=== PATIENT | female | born 1940 | race Native Hawaiian/Other Pacific Islander ===

== ENCOUNTER 2017-01-19 07:56 | Observation (INO) | payer MEDICARE ==
[2017-01-17 10:32] VITALS: BMI 14.1
[2017-01-19] MEDS ORDERED: Bupivacaine 0.5% Inj(30mL) ONE (11:14)
[2017-01-19] MEDS ORDERED: Rocuronium 10 mg/ml (5 ml) ONE (11:41)
[2017-01-19] MEDS ORDERED: Propofol 10 mg/ml Inj (20 ML) ONE (11:41)
[2017-01-19] MEDS ORDERED: ePHEDrine 50 mg/ml Inj ONE (11:42)
[2017-01-19] MEDS ORDERED: Phenylephrine 10 mg/ml Inj ONE (11:42)
[2017-01-19] MEDS ORDERED: Lidocaine 2% MPF (5 ml) Inj ONE (11:42)
[2017-01-19] MEDS ORDERED: Etomidate 20 mg/10ml Inj IV ONE (12:05)
[2017-01-19] MEDS ORDERED: Lactated Ringer's 1,000 ML IV ONE ×2 (12:15→15:00)
[2017-01-19] MEDS ORDERED: Dexamethasone 4 mg/1 ml ONE (12:38)
[2017-01-19] MEDS ORDERED: Bupivacaine 0.5% 50 ML IJ ONE (12:40)
[2017-01-19] MEDS ORDERED: Desflurane Inhalation Anesthetic Liq (240 ml) ONE (12:44)
[2017-01-19] MEDS ORDERED: Neostigmine Methylsulfate 2 MG/2 ML ML IV ONE (12:46)
[2017-01-19] MEDS ORDERED: Neostigmine Methylsulfate 3mg/3ml Syringe IV ONE (12:46)
[2017-01-19] MEDS ORDERED: HYDROmorphone 0.5 mg/0.5 ml ISec IVP PRN (13:21)
--- NOTE | 2017-01-19 13:21 | PCM.SURG1 ---
Surgeon's Initial Post Op Note - Surgeon's Notes Surgeon: Dr. Lenz Refractive Surgeon: Dr. Villarreal, Dr. Soto PGY2; Dr. Potter Type of Anesthesia: General Endo Anesthesia Administered By: Peggy Pre-Operative Diagnosis: Chronic Cholecystitis Operative Findings: same Post-Operative Diagnosis: same Operation Performed: Laparoscopic Cholecystectomy Specimen/Specimens Removed: Gallbladder Estimated Blood Loss: EBL {In ML}: 5 Blood Products Given: N/A Drains Used: No Drains Post-Op Condition: Good Date of Surgery/Procedure: 01/19/17 Time of Surgery/Procedure: 13:21
--- NOTE | 2017-01-19 13:24 | CP.SDSHP ---
Same Day Surgery H & P - History Proposed Procedure: Laparoscopic Cholecystectomy Pre-Op Diagnosis: Chronic Cholecystitis - Allergies Allergies: Allergies No Known Allergies Allergy (Verified 11/10/16 20:42) - Physical Exam Vital Signs: Vital Signs 01/19/17 01/19/17 08:30 08:37 Temperature 97.7 F Pulse Rate 95 H 95 H Respiratory 18 Rate Blood Pressure 139/70 O2 Sat by Pulse 96 Oximetry Short Stay Discharge - Short Stay Discharge Admitting Diagnosis/Reason for Visit: K80.12 Disposition: HOME/ ROUTINE Follow-up: Followup in office in 1 week. Additional Instructions (Diet, Activity): You may shower, no baths. Resume regular diet and light activities. Avoid any heavy lifting >10lbs for 4weeks. Make an appt. to see Dr. Lenz in office in 1 week. Take tylenol #3 for pain as prescribed.
[2017-01-19] MEDS ORDERED: Lactated Ringer's 1,000 ML IV SCH (13:30)
[2017-01-19] MEDS ORDERED: Naloxone 0.4 mg/ml Inj (Adult) ONE (13:35)
--- NOTE | 2017-01-19 13:39 | OP ---
PROCEDURE DATE: 01/19/2017 PREOPERATIVE DIAGNOSES: Cholecystitis, cholelithiasis, history of pancreatitis and pseudocysts. POSTOPERATIVE DIAGNOSES: Cholecystitis, cholelithiasis, history of pancreatitis and pseudocysts. PROCEDURE: Laparoscopy, laparoscopic cholecystectomy. SURGEON: Jesús Lenz MD ASSISTANTS: Dr. Villarreal, Dr. Soto and . ANESTHESIA: General endotracheal, DrCortney . OPERATIVE FINDINGS: Chronic cholecystitis. PREPARATION AND PROCEDURE: The patient was brought to the Operating Room and after successful induct ion of general endotracheal anesthesia was obtained, the abdomen was prepped and draped in the usual manner. A Veress needle was inserted in the periumbilical region and making sure that it was in the i ntra-abdominal cavity adequate pneumoperitoneum was obtained. The needle was removed. A periumbilic al incision was made and a 10 mm trocar was inserted. A full laparoscopy did not reveal any gross in tra-abdominal pathology. So at this point under direct visualization, another 10 mm trocar was inser enzo just right of the midline in the epigastric region and two 5 mm trocars were inserted in the righ t upper quadrant. At this point dissection was carried out of the triangle of Calot. The cystic kelsy t was visualized and dissected down to the confluence of the common bile duct. The cystic duct was t riply clipped and divided and continuing dissection at the triangle of Calot, the cystic artery was v isualized, triply clipped and divided. The gallbladder was then dissected from the gallbladder fossa using hemocautery and obtaining hemostasis the same way. Just before removing the whole gallbladder from its fossa, the area was copiously irrigated, hemostasis was obtained and then the gallbladder w as totally removed from its fossa. The gallbladder was removed from the peritoneal cavity via the um bilical incision and once this was done, the trocar was reinserted and the right upper quadrant was c opiously irrigated and suctioned. Once this was done and making sure that hemostasis was excellent, all trocars were removed under direct visualization and the umbilical and epigastric incisions were c losed with #10 Vicryl. The skin was approximated using fine nylon. All incisions were infiltrated w ith Marcaine. POSTOPERATIVE CONDITION: The patient tolerated the procedure very well and was transferred to the Re covery Room in good general status. Jesús Lenz MD cc: [id number] TT: 01/19/2017 13:38:33 [facility] # [id number] en
[2017-01-19] MEDS: Naloxone 0.4 mg/ml Inj (Adult) IVP ONE ×6 (13:40→14:17)
[2017-01-19] MEDS ORDERED: Labetalol 5mg/ml (4ml) ONE (13:49)
[2017-01-19] MEDS ORDERED: Labetalol 5mg/ml (4ml) IVP ONE (14:01)
--- NOTE | 2017-01-19 14:05 | CP.PCM.PN ---
Subjective - Date & Time of Evaluation Date of Evaluation: 01/19/17 Time of Evaluation: 14:03 - Subjective Subjective: Patient lethergic in PACU with shallow respirations. Narcan given 0.04 mg at a time for a total of 0.12 mg. Patient now responding and opening her eyes with deeper breaths. 26 F nasal trumpet inserted to help alleviate obstruction. Patients BP up to 186/94 in recovery so gave 5 mg Labetalol. Objective - Vital Signs/Intake and Output Vital Signs (last 24 hours): Temp Pulse Resp BP Pulse Ox 97.7 F 95 H 18 139/70 96 01/19/17 08:30 01/19/17 08:37 01/19/17 08:30 01/19/17 08:30 01/19/17 08:30 Intake and Output: 01/19/17 01/19/17 06:59 18:59 Intake Total 700 Balance 700 - Medications Medications: Current Medications Hydromorphone HCl (Dilaudid) 0.5 mg IVP Q10M PRN PRN Reason: Pain, moderate (4-7) Stop: 01/19/17 13:32 Lactated Ringer's (Lactated Ringer's) 1,000 mls @ 125 mls/hr IV .Q8H KAYLA Labetalol HCl (Trandate) 5 mg IVP ONCE ONE Stop: 01/19/17 14:02 Naloxone HCl (Narcan) 0.4 mg IVP ONCE ONE Stop: 01/19/17 14:00
[2017-01-19 15:10] LABS: ABG ALLEN TEST YES; ARTERIAL BLOOD GAS O2 CAPACITY 15.9 mL/dL (16-24); ARTERIAL BLOOD GAS O2 CONTENT 15.8 ML/dL (15-23); ARTERIAL BLOOD GAS PH 7.34 (7.35-7.45); ARTERIAL BLOOD GAS PO2 94 mm/Hg (80-100); ARTERIAL BLOOD HGB O2 SAT 96.1 % (95.0-98.0); CARBOXYHEMOGLOBIN 1.9 % (0.5-1.5); DRAW SITE rr; HHB 0.6 % (0.0-5.0); METHEMOGLOBIN 1.5 % (0.0-3.0)
--- NOTE | 2017-01-19 15:33 | CP.PCM.HP ---
History of Present Illness - History of Present Illness History of Present Illness: 76F seen and examined at bedside with attending. Pt denies any pain in either her abdomen or chest, denies nausea. PMH: Biliary Pancreatitis, HLD PSH:None Denies: smoke/alcohol/drugs Allergies: NKDA Medications: See Med Rec Present on Admission - Present on Admission Any Indicators Present on Admission: No Review of Systems - Review of Systems Review of Systems: As per HPI Past Patient History - Infectious Disease Hx of Infectious Diseases: None - Past Medical History & Family History Past Medical History?: Yes - Past Social History Smoking Status: Never Smoked - CARDIAC Hx Cardiac Disorders: Yes Hx Hypercholesterolemia: Yes - PULMONARY Hx Respiratory Disorders: No - NEUROLOGICAL Hx Neurological Disorder: No - HEENT Hx HEENT Problems: Yes Hx Cataracts: Yes Other/Comment: Use eyeglasses - RENAL Hx Chronic Kidney Disease: No - ENDOCRINE/METABOLIC Hx Endocrine Disorders: No - HEMATOLOGICAL/ONCOLOGICAL Hx Blood Disorders: No - INTEGUMENTARY Hx Dermatological Problems: No - MUSCULOSKELETAL/RHEUMATOLOGICAL Hx Musculoskeletal Disorders: Yes Hx Back Pain: Yes Hx Falls: Yes - GASTROINTESTINAL Hx Gastrointestinal Disorders: Yes Hx Gall Bladder Disease: Yes (gall stones) Hx Pancreatitis: Yes - GENITOURINARY/GYNECOLOGICAL Hx Genitourinary Disorders: No - PSYCHIATRIC Hx Psychophysiologic Disorder: No Hx Emotional Abuse: No Hx Physical Abuse: No Hx Substance Use: No - SURGICAL HISTORY Hx Surgeries: Yes Hx Cataract Extraction: Yes (about 3 - 4 yrs. ago) Hx Tonsillectomy: Yes - ANESTHESIA Hx Anesthesia: Yes Hx Anesthesia Reactions: No Hx Malignant Hyperthermia: No Has any member of the family had a problem w/ anesthesia?: No Meds Allergies/Adverse Reactions: Allergies Allergy/AdvReac Type Severity Reaction Status Date / Time No Known Allergies Allergy Verified 11/10/16 20:42 Physical Exam - Constitutional Appears: Well, No Acute Distress (Drowsy) - Head Exam Head Exam: ATRAUMATIC, NORMAL INSPECTION - Eye Exam Eye Exam: EOMI, Normal appearance - ENT Exam ENT Exam: Mucous Membranes Moist, Normal Exam - Respiratory Exam Respiratory Exam: Clear to Auscultation Bilateral, NORMAL BREATHING PATTERN. absent: Rales, Wheezes - Cardiovascular Exam Cardiovascular Exam: REGULAR RHYTHM. absent: JVD - GI/Abdominal Exam GI & Abdominal Exam: Hypoactive Bowel Sounds, Soft, Tenderness (appropriately ttp, 4 small incisions c/w lap CCY well-approximated) - Extremities Exam Extremities exam: Positive for: full ROM, normal capillary refill, pedal pulses present - Neurological Exam Additional comments: Arouseable c/w post-anesthetic - Skin Skin Exam: Dry, Normal Color, Warm Results - Vital Signs Recent Vital Signs: Last Vital Signs Temp 36.5 C 01/19/17 08:30 Pulse 95 H 01/19/17 08:37 Resp 18 01/19/17 08:30 BP 139/70 01/19/17 08:30 Pulse Ox 96 01/19/17 08:30 - Labs Labs: Laboratory Results - last 24 hr 01/19/17 14:55 Puncture Site rr pCO2 49 H pO2 94 HCO3 25.0 ABG pH 7.34 L ABG Total CO2 27.9 ABG O2 Saturation 99.4 H ABG O2 Content 15.8 ABG Base Excess 0.1 ABG Hemoglobin 11.6 L ABG Carboxyhemoglobin 1.9 H POC ABG HHb (Measured) 0.6 ABG Methemoglobin 1.5 ABG O2 Capacity 15.9 L Chip Test Yes A-a O2 Difference 201.0 Hgb O2 Saturation 96.1 FiO2 50.0 Blood Gas Comments 10l/m nc Assessment & Plan (1) Cholelithiasis Assessment and Plan: POD#0 s/p lap CCY, stable condition, admit to obs. - Mgmnt as per Gen Surg - Pain control - Diet, IVF - abx as indicated - Incentive spirometry Status: Acute (2) DVT prophylaxis Assessment and Plan: As per surgery team, would recommend - Heparin 5,000U, SC, Q12H Status: Acute (3) Hyperlipidemia Assessment and Plan: Controlled, c/w home medication. Status: Chronic
[2017-01-19] MEDS ORDERED: Acetaminophen-Codeine 300/30 mg Tab PO PRN (15:37)
--- NOTE | 2017-01-19 16:05 | RAD ---
HISTORY: S/P Lap Krista COMPARISON: No prior. FINDINGS: LUNGS: No active pulmonary disease. PLEURA: No significant pleural effusion identified, no pneumothorax apparent. CARDIOVASCULAR: Normal. OSSEOUS STRUCTURES: No significant abnormalities. VISUALIZED UPPER ABDOMEN: Normal. OTHER FINDINGS: None. IMPRESSION: No active disease.
[2017-01-20 04:45] VITALS: RESP 18
[2017-01-20 05:47] LABS: HEMATOCRIT 34.4 % (34.0-47.0); MEAN CELL VOLUME 93.1 fl (81.0-99.0); MEAN CORPUSCULAR HEMOGLOBIN 30.2 pg (27.0-31.0); MEAN CORPUSCULAR HGB CONC 32.5 g/dL (33.0-37.0); RED CELL DISTRIBUTION WIDTH 13.1 % (11.5-14.5); WHITE BLOOD COUNT 7.9 K/uL (4.8-10.8)
[2017-01-20 05:51] LABS: BLOOD UREA NITROGEN 14 mg/dl (7-17); CALCIUM 9.1 mg/dL (8.4-10.2); CARBON DIOXIDE 27 mmol/L (22-30); CHLORIDE 105 mmol/L (98-107); GFR AFRICAN-AMERICAN > 60; GLUCOSE,RANDOM 125 mg/dL (65-105); POTASSIUM 4.7 MMOL/L (3.6-5.0); SODIUM 142 mmol/l (132-148)
--- NOTE | 2017-01-20 06:13 | CP.PCM.PN ---
Subjective - Date & Time of Evaluation Date of Evaluation: 01/20/17 Time of Evaluation: 06:13 - Subjective Subjective: 76F Objective - Vital Signs/Intake and Output Vital Signs (last 24 hours): Temp Pulse Resp BP Pulse Ox 36.6 C 78 18 100/48 L 100 01/20/17 04:44 01/20/17 04:44 01/20/17 04:44 01/20/17 04:44 01/20/17 04:44 Intake and Output: 01/19/17 01/20/17 18:59 06:59 Intake Total 1100 Balance 1100 - Medications Medications: Current Medications Acetaminophen/Codeine Phosphate (Tylenol/Codeine 300 Mg/30 Mg) 1 tab PO Q6 PRN PRN Reason: Pain, moderate (4-7) Last Admin: 01/20/17 02:17 Dose: 1 tab Atorvastatin Calcium (Lipitor) 40 mg PO DAILY KAYLA Ergocalciferol (Drisdol 50,000 Intl Units Cap) 1 cap PO QD7 KAYLA Lactated Ringer's (Lactated Ringer's) 1,000 mls @ 125 mls/hr IV .Q8H KAYLA Last Admin: 01/20/17 02:14 Dose: 125 mls/hr Ondansetron HCl (Zofran Inj) 4 mg IVP Q4 PRN PRN Reason: Nausea/Vomiting - Labs Labs: 01/20/17 05:00 01/20/17 05:00 Assessment and Plan (1) Cholelithiasis Status: Acute (2) DVT prophylaxis Status: Acute (3) Hyperlipidemia Status: Chronic
[2017-01-20] MEDS ORDERED: Ergocalciferol 50,000 Intl Units Cap PO SCH (07:30)
[2017-01-20 08:52] VITALS: BP 121/69; PULSE 90; TEMP 98.5; O2SAT 99
--- NOTE | 2017-01-20 09:34 | CP.PCM.DIS ---
Provider - Provider Date of Admission: 01/19/17 15:07 Attending physician: Ron Rubio MD Primary care physician: Ron Rubio MD Time Spent in preparation of Discharge (in minutes): 45 Diagnosis - Discharge Diagnosis (1) Cholelithiasis Status: Acute Comment: POD#2 s/p lap CCY, eating, passing flatus, pain controlled. (2) Hyperlipidemia Status: Chronic Comment: Stable, c/w home medications. Hospital Course - Lab Results Lab Results: Most Recent Lab Values WBC 7.9 K/uL (4.8-10.8) 01/20/17 05:00 RBC 3.70 Mil/uL (3.80-5.20) L 01/20/17 05:00 Hgb 11.2 g/dL (12.0-16.0) L 01/20/17 05:00 Hct 34.4 % (34.0-47.0) 01/20/17 05:00 MCV 93.1 fl (81.0-99.0) D 01/20/17 05:00 MCH 30.2 pg (27.0-31.0) 01/20/17 05:00 MCHC 32.5 g/dL (33.0-37.0) L 01/20/17 05:00 RDW 13.1 % (11.5-14.5) 01/20/17 05:00 Plt Count 189 K/uL (130-400) 01/20/17 05:00 Puncture Site rr 01/19/17 14:55 pCO2 49 mm/Hg (35-45) H 01/19/17 14:55 pO2 94 mm/Hg (80-100) 01/19/17 14:55 HCO3 25.0 mmol/L (21-28) 01/19/17 14:55 ABG pH 7.34 (7.35-7.45) L 01/19/17 14:55 ABG Total CO2 27.9 mmol/L (22-28) 01/19/17 14:55 ABG O2 Saturation 99.4 % (95-98) H 01/19/17 14:55 ABG O2 Content 15.8 ML/dL (15-23) 01/19/17 14:55 ABG Base Excess 0.1 mmol/L (-2.0-3.0) 01/19/17 14:55 ABG Hemoglobin 11.6 g/dL (11.7-17.4) L 01/19/17 14:55 ABG Carboxyhemoglobin 1.9 % (0.5-1.5) H 01/19/17 14:55 POC ABG HHb (Measured) 0.6 % (0.0-5.0) 01/19/17 14:55 ABG Methemoglobin 1.5 % (0.0-3.0) 01/19/17 14:55 ABG O2 Capacity 15.9 mL/dL (16-24) L 01/19/17 14:55 Chip Test Yes 01/19/17 14:55 A-a O2 Difference 201.0 mm/Hg 01/19/17 14:55 Hgb O2 Saturation 96.1 % (95.0-98.0) 01/19/17 14:55 FiO2 50.0 % 01/19/17 14:55 Blood Gas Comments 10l/m nc 01/19/17 14:55 Sodium 142 mmol/l (132-148) 01/20/17 05:00 Potassium 4.7 MMOL/L (3.6-5.0) 01/20/17 05:00 Chloride 105 mmol/L (98-107) 01/20/17 05:00 Carbon Dioxide 27 mmol/L (22-30) 01/20/17 05:00 Anion Gap 15 (10-20) 01/20/17 05:00 BUN 14 mg/dl (7-17) 01/20/17 05:00 Creatinine 0.5 mg/dL (0.7-1.2) L 01/20/17 05:00 Est GFR ( Amer) > 60 01/20/17 05:00 Est GFR (Non-Af Amer) > 60 01/20/17 05:00 Random Glucose 125 mg/dL (65-105) H 01/20/17 05:00 Calcium 9.1 mg/dL (8.4-10.2) 01/20/17 05:00 - Hospital Course Hospital Course: 76F admitted for observation due to significant lethargy after lap cholecystectomy. Patient is doing well, PO tolerant, passing flatus, and pain well-managed. Discharge Exam - Head Exam Head Exam: ATRAUMATIC, NORMAL INSPECTION - Eye Exam Eye Exam: EOMI, Normal appearance - ENT Exam ENT Exam: Mucous Membranes Moist, Normal Exam - Respiratory Exam Respiratory Exam: Clear to PA & Lateral, NORMAL BREATHING PATTERN. absent: Rales, Wheezes - Cardiovascular Exam Cardiovascular Exam: REGULAR RHYTHM. absent: JVD - GI/Abdominal Exam GI & Abdominal Exam: Normal Bowel Sounds, Soft, Tenderness (appropriately ttp, incisions well-approximated w/o erythema or drainage) - Extremities Exam Extremities exam: full ROM, normal capillary refill, pedal pulses present - Neurological Exam Neurological exam: Alert, Oriented x3 - Psychiatric Exam Psychiatric exam: Normal Affect, Normal Mood - Skin Skin Exam: Normal Color, Warm Discharge Plan - Discharge Medications Prescriptions: Acetaminophen with Codeine [Tylenol with Codeine #3 Tablet] 1 each PO TID #15 tablet - Follow Up Plan Condition: GOOD Disposition: HOME/ ROUTINE Additional Instructions: You may shower, no baths. Resume regular diet and light activities. Avoid any heavy lifting >10lbs for 4weeks. Make an appt. to see Dr. Lenz in office in 1 week. Take tylenol #3 for pain as prescribed. Referrals: Ron Rubio MD [Primary Care Provider] -
--- NOTE | 2017-01-20 09:50 | CP.PCM.PN ---
Subjective - Date & Time of Evaluation Date of Evaluation: 01/20/17 Time of Evaluation: 09:48 - Subjective Subjective: General Surgery - Dr. Lenz Pt S&E. TARAS. Pt is doing well post-operatively. She is sitting up in bed eating breakfast, feeling much better. No N/V, F/C, SOB/Cp. Objective - Vital Signs/Intake and Output Vital Signs (last 24 hours): Temp Pulse Resp BP Pulse Ox 98.5 F 90 18 121/69 99 01/20/17 08:00 01/20/17 08:00 01/20/17 08:00 01/20/17 08:00 01/20/17 08:00 - Medications Medications: Current Medications Acetaminophen/Codeine Phosphate (Tylenol/Codeine 300 Mg/30 Mg) 1 tab PO Q6 PRN PRN Reason: Pain, moderate (4-7) Last Admin: 01/20/17 02:17 Dose: 1 tab Atorvastatin Calcium (Lipitor) 40 mg PO DAILY KAYLA Last Admin: 01/20/17 09:25 Dose: 40 mg Ergocalciferol (Drisdol 50,000 Intl Units Cap) 1 cap PO QD7 KAYLA Lactated Ringer's (Lactated Ringer's) 1,000 mls @ 125 mls/hr IV .Q8H KAYLA Last Admin: 01/20/17 02:14 Dose: 125 mls/hr Ondansetron HCl (Zofran Inj) 4 mg IVP Q4 PRN PRN Reason: Nausea/Vomiting - Labs Labs: 01/20/17 05:00 01/20/17 05:00 - Constitutional Appears: No Acute Distress - Head Exam Head Exam: ATRAUMATIC, NORMOCEPHALIC - Respiratory Exam Respiratory Exam: NORMAL BREATHING PATTERN. absent: Respiratory Distress - GI/Abdominal Exam GI & Abdominal Exam: Soft. absent: Distended, Guarding, Tenderness Additional comments: incision C/D/I with dermabond - Neurological Exam Neurological Exam: Alert, Oriented x3 - Psychiatric Exam Psychiatric exam: Normal Affect, Normal Mood - Skin Skin Exam: Dry, Intact Assessment and Plan - Assessment and Plan (Free Text) Assessment: 76 yo F s/p Lap Cholecystectomy, POD #1 Clear for d/c home from surgical standpoint D/C instructions as written in SDS D/C note, Tylenol #3 Rx for pain F/U with Dr. Lenz in office in 1-[address] Delfin Soto PGY2
== END 2017-01-20 12:03 | disposition home or self-care (01) ==
LOC: H.OPSURG 07:56 → OBSVTOIN 15:07 → H.TEL 15:07 → INTOOBSV 15:07 → H.TEL 15:17 → UNDOADMOB 15:17
PROVIDERS: ADMIT Family Medicine; ATTEND Family Medicine
DX: K80.10 Calculus of gallbladder with chronic cholecystitis without obstruction (principal); E78.5 Hyperlipidemia, unspecified
CPT/HCPCS: 36415; 47562; 71010; 80048; 82803; 85027; 88304; G0378; J0690; J1100; J2310; J2370; J2405; J2704; J2710; J3010; J7030; J7120